=== PATIENT | male | born 1990 | race American Indian/Alaskan Native ===

== ENCOUNTER 2018-08-05 12:35 | Day surgery (SDC) | payer OTHER ==
[~2018-08-05 12:35] MED LIST: NACL 0.9% 1000 ML 1,000 ML IV SCH
--- NOTE | 2018-08-05 15:15 | Anesthesia Day of Surgery ---
Anesthesia Day of Surgery - Day of Surgery Patient Examined: Yes Patient H&P Reviewed: Yes Patient is NPO: Yes Beta Blockers: No Cardiac Clearance: No Pulmonary Clearance: No
--- NOTE | 2018-08-05 15:15 | Anesthesia Consultation ---
Anesthesia Consult and Med Hx Date of service: 08/05/18 - Airway Anesthetic Teeth Evaluation: Good ROM Head & Neck: Adequate Mental/Hyoid Distance: Adequate Mallampati Class: Class II Intubation Access Assessment: Good - Pulmonary Exam CTA: Yes - Cardiac Exam Cardiac Exam: RRR - Pre-Operative Health Status ASA Pre-Surgery Classification: ASA1 Proposed Anesthetic Plan: MAC
[2018-08-05] MEDS ORDERED: DIPRIVAN 10 MG/ML IV ONE ×2 (17:14→17:41)
--- NOTE | 2018-08-05 17:39 | Operative Report ---
Operative Report Operative Report: Procedure: Esophagogastroduodenoscopy with multiple mucosal biopsies. Attending physician: Jeison Hamm MD Conversion Developer: Jeison Hamm MD Indication: Patient is a 28 -year-old male who presented with a history of epigastric pain. An upper endoscopy is done to assess patient, so that treatment may be directed based on the findings. Consent: Informed consent was obtained after advising the patient and family regarding nature of this procedure, its indications, potential benefits as well as possible complications including but not limited to bleeding perforation and adverse reaction to medication, infection as well as other cardiopulmonary complications. An informed written and verbal consent was then obtained after due opportunity was provided for questions and answers. Monitoring: Patient was monitored continuously with pulse oximetry and electrocardiographic recordings as well as blood pressure recordings. Vital signs remained stable throughout this procedure with no untoward events. Preoperative assessment: Patient was assessed immediately prior to this procedure for capacity to tolerate monitored anesthesia care and moderate sedation as well as general anesthesia. Patient's ASA classification is 3, Mallampati class is 2, Hyomental distance is 3. Instrument: [employer] video endoscope Medications: Propofol given intravenously in divided doses. For details please refer to anesthesia records. Description of procedure: Patient was placed in the left lateral decubitus position after achieving sedation, the endoscope was introduced into the esophagus under direct vision. It was then advanced beyond the esophagus into the stomach and then beyond the stomach into the duodenum and to the second portion of the duodenum. It was subsequently withdrawn with careful inspection of all mucosal surfaces with the following findings. Findings: Patient had an irregular Z line at 40 cm. There was erythema in the gastric antrum. Biopsies were obtained from the antrum for histopathology. The duodenum was normal to the second portion Impression: Irregular Z line. Gastric antral erythema Status post biopsies from the gastric antrum. Plan: Follow pathology report. Direct additional treatment based on the pathology report.
--- NOTE | 2018-08-05 17:40 | Discharge Summary ---
Short Stay Discharge Plan Activity: advance as tolerated Weight Bearing Status: Weight Bear as Tolerated Diet: regular Follow up with: MAITE HOLLIDAY MD [Primary Care Provider] - 7 Days
[2018-08-05 18:11] VITALS: BP 126/78
== END 2018-08-05 12:36 | disposition home or self-care (01) ==
LOC: GIO 12:35
PROVIDERS: ATTEND Internal Medicine Gastroenterology
DX: K22.8 Other specified diseases of esophagus (principal); R10.13 Epigastric pain; R14.1 Gas pain; F32.9 Major depressive disorder, single episode, unspecified; Z98.890 Other specified postprocedural states
CPT/HCPCS: 43239; 88305; 88342; J2704; J7030